=== PATIENT | male | born 1965 | race Caucasian/White ===

== ENCOUNTER → 2020-05-18 | Outpatient (CLI) | payer BC | END | disposition home or self-care (01) | LOC: LABWHC1 07:55 | PROVIDERS: ATTEND Anesthesiology Pain Medicine | DX: Z11.59 Encounter for screening for other viral diseases (principal) | CPT/HCPCS: U0003; C9803 ==

== ENCOUNTER 2020-09-21 15:54 | Inpatient (IN) | payer BC ==
[2020-09-21] MEDS ORDERED: NITROGLYCERIN OINT 1 INCH/GM PACKET TOPICAL STA (16:11)
[2020-09-21] MEDS ORDERED: ASPIRIN 81 MG PO STA (16:11)
--- NOTE | 2020-09-21 16:23 | ED ---
Chest Pain HPI - General Chief Complaint: Chest Pain Stated Complaint: Chest Pain Time Seen by Provider: 09/21/20 16:01 Source: patient, RN notes reviewed Mode of arrival: ambulatory Limitations: no limitations - History of Present Illness Initial Comments: 54-year-old male presents emergency Department chief complaint chest pain. Patient states symptoms started approximately one hour ago. Patient has been on and off symptoms over the last couple weeks. Patient has no prior cardiac disease. Patient is a daily smoker for over 30 years. Patient denies any history of hypertension hyperlipidemia diabetes. Patient has no abdominal complaints. Patient states became very diaphoretic when the pain started. Patient states the pain is 3 out of 10 currently denies any back pain. - Related Data Allergies Allergy/AdvReac Type Severity Reaction Status Date / Time No Known Allergies Allergy Verified 09/21/20 15:59 Review of Systems ROS Statement: Those systems with pertinent positive or pertinent negative responses have been documented in the HPI. ROS Other: All systems not noted in ROS Statement are negative. EKG Findings - EKG Comments: EKG Findings:: EKG performed at 16:04 normal sinus rhythm rate of 68 FL 150 QRS 96 QT status QTC 424/424 Past Medical History Additional Past Medical History / Comment(s): DDD History of Any Multi-Drug Resistant Organisms: None Reported Past Surgical History: Cholecystectomy, Orthopedic Surgery, Tonsillectomy Past Psychological History: No Psychological Hx Reported Smoking Status: Current every day smoker Past Alcohol Use History: None Reported Past Drug Use History: None Reported General Exam Limitations: no limitations General appearance: alert, in no apparent distress Head exam: Present: atraumatic, normocephalic, normal inspection Eye exam: Present: normal appearance, PERRL, EOMI. Absent: scleral icterus, conjunctival injection, periorbital swelling ENT exam: Present: normal exam, normal oropharynx, mucous membranes moist Neck exam: Present: normal inspection, full ROM. Absent: tenderness, meningismus, lymphadenopathy Respiratory exam: Present: normal lung sounds bilaterally. Absent: respiratory distress, wheezes, rales, rhonchi, stridor Cardiovascular Exam: Present: regular rate, normal rhythm, normal heart sounds. Absent: systolic murmur, diastolic murmur, rubs, gallop, clicks GI/Abdominal exam: Present: soft, normal bowel sounds. Absent: distended, tenderness, guarding, rebound, rigid Course Vital Signs 09/21/20 09/21/20 09/21/20 15:57 16:09 16:50 Temperature 98.1 F 97.9 F Pulse Rate 52 L 55 L Pulse Rate [ 63 Backroom Associate ] Respiratory 18 16 Rate Blood Pressure 130/77 113/79 O2 Sat by Pulse 97 98 Oximetry Chest Pain MDM - MDM 54-year-old male presented for chest pain., EKG, labs chest x-ray unremarkable. Patient symptoms started 1 hour prior to arrival. Patient be held for cardiac observation, repeat troponin, echocardiogram, cardiology evaluation possible stress and heart cath. Disposition Clinical Impression: Chest pain Disposition: ADMITTED IP TO THIS HOSP Referrals: Benjamin Rodriguez DO [Primary Care Provider] - 1-2 days
[2020-09-21 16:33] LABS: Basophils # (A) 0.1 k/uL (0-0.2); Basophils % (A) 1 %; Eosinophils # (A) 0.2 k/uL (0-0.7); Eosinophils % (A) 3 %; HGB 14.6 gm/dL (13.0-17.5); Lymphocytes # (A) 2.2 k/uL (1.0-4.8); Lymphocytes % (A) 26 %; MCH 30.4 pg (25.0-35.0); MCHC 33.2 g/dL (31.0-37.0); MCV 91.4 fL (80.0-100.0); Mean Platelet Volume 6.6; Monocytes # (A) 0.5 k/uL (0-1.0); Monocytes % (A) 6 %; Neutrophils # (A) 5.2 k/uL (1.3-7.7); Neutrophils % (A) 62 %; Platelet Count 268 k/uL (150-450); RBC 4.82 m/uL (4.30-5.90); RDW 12.5 % (11.5-15.5); WBC 8.4 k/uL (3.8-10.6)
[2020-09-21 16:41] LABS: ALT 18 U/L (4-49); AST 19 U/L (17-59); African American GFR (CKD) >90 (>60 ml/min/1.73 sqM); Albumin 4.3 g/dL (3.5-5.0); Alkaline Phosphatase 67 U/L (38-126); Anion Gap 5 mmol/L; Blood Urea Nitrogen 13 mg/dL (9-20); Calcium 9.5 mg/dL (8.4-10.2); Carbon Dioxide 26 mmol/L (22-30); Chloride 106 mmol/L (98-107); Glucose 112 mg/dL (74-99); Lipase 46 U/L (23-300); Magnesium 1.8 mg/dL (1.6-2.3); Non-African American GFR(CKD) >90 (>60 ml/min/1.73 sqM); Potassium 4.1 mmol/L (3.5-5.1); Sodium 137 mmol/L (137-145); Total Bilirubin 0.6 mg/dL (0.2-1.3); Total Protein 6.9 g/dL (6.3-8.2)
[2020-09-21 16:46] LABS: INR 0.9 (<1.2); Partial Thromboplastin Time 24.6 sec (22.0-30.0); Prothrombin Time 9.4 sec (9.0-12.0)
--- NOTE | 2020-09-21 17:06 | XR ---
EXAMINATION TYPE: XR chest 2V DATE OF EXAM: 09/21/2020 COMPARISON: 10/19/2018 HISTORY: Chest pain TECHNIQUE: FINDINGS: Heart and mediastinum are normal. Lungs are clear. Diaphragm is normal. Bony thorax is norm al. IMPRESSION: Normal chest. No change.
[2020-09-21] MEDS ORDERED: HEPARIN SODIUM,PORCINE 5,000 UNIT/ML 1 ML VIAL IV ONE (17:10)
[2020-09-21] MEDS ORDERED: NITROGLYCERIN SL TABS 0.4 MG TAB SUBLINGUAL PRN (17:10)
[2020-09-21] MEDS: HEPARIN SOD,PORK IN 0.45% NACL 25,000 UNIT in 0.45% NACL 1 250ML.BAG IV SCH (17:26)
[2020-09-21] MEDS: HYDROcodone/APAP 10-325MG 1 EACH TAB PO SCH (20:41)
[2020-09-21] MEDS ORDERED: ACETAMINOPHEN TAB 325 MG TAB PO PRN (22:03)
--- NOTE | 2020-09-21 22:51 | P.HPIM ---
History of Present Illness H&P Date: 09/21/20 Chief Complaint: chest pain History of presenting complaint: This is a pleasant [address] Rodriguez. Patient long-standing smoker. Patient today developed a burning sensation in the upper chest and patient broke or numbness site. It went to his jaw. Positive for good 30 minutes. Patient is feeling tired and rundown. It finally settled after receiving and Nitropaste in the ER. Currently chest pain-free. IV heparin. Patient second troponin coming back positive. The pain did radiate to the neck.. Burning sensation like in nature. Review of systems: GEN.: Tired EYES: None HEENT: None NECK: None RESPIRATORY: None CARDIOVASCULAR: As above GASTROINTESTINAL: None GENITOURINARY: None MUSCULOSKELETAL: [Chronic back pain LYMPHATICS: None HEMATOLOGICAL: None PSYCHIATRY: None NEUROLOGICAL: None Past medical history to include: DJD Social history: Does not drink alcohol. . Currently not working-previously doing part- time work. Smokes a pack a day for about 36 years Physical examination: VITAL SIGNS: 98.1, 52, 18, 130/77, 97% on room air GENERAL: BMI 33.5, sitting up at age of the bed, not in distress. EYES: Pupils equal. Conjunctiva normal. HEENT: External appearance of nose and ears normal, oral cavity grossly normal. NECK: JVD not raised; masses not palpable. HEART: First and second heart sounds are normal; no edema. LUNGS: Respiratory rate normal; decreased breath sounds. ABDOMEN: Soft, nontender, liver spleen not palpable, no masses palpable. PSYCH: Alert and oriented x3; mood and affect normal. NEUROLOGICAL: Cranial nerves grossly intact; no facial asymmetry, power and sensation grossly intact. LYMPHATICS: No lymph nodes palpable in the axilla and neck INVESTIGATIONS, reviewed in the clinical context: White count 8.4 hemoglobin 14.6 platelets 268 potassium 4.1 creatinine 0.95 Troponin I 0.012, 0.072 EKG tracing personally reviewed by me-normal sinus rhythm, PVC Chest x-ray film personally reviewed by me-no infiltrates. Borderline cardiomegaly Assessment: -Acute non-ST elevation myocardial infarction with classical presentation and positive troponin. No EKG changes. Suspect left main or LAD disease. -Obesity BMI 33.5 -IV heparin monitoring -Chronic nicotine dependence patient cigarette smoker -DJD of the cervical spine, but chronic pain Plan: Patient is on aspirin. Home medications resumed. IV heparin. Start the patient on Lipitor. Patient's heart rate is running in the 50s we'll hold off any beta lori. Cardiology consulted. Patient be made nothing by mouth after midnight for a possible cardiac catheterization. Smoke cessation counseling: This was done with the patient. Nicotine patch is being given. More than 3 minutes was spent for this Past Medical History Additional Past Medical History / Comment(s): DDD History of Any Multi-Drug Resistant Organisms: None Reported Past Surgical History: Cholecystectomy, Orthopedic Surgery, Tonsillectomy Past Psychological History: No Psychological Hx Reported Smoking Status: Current every day smoker Past Alcohol Use History: None Reported Past Drug Use History: None Reported Medications and Allergies Home Medications Medication Instructions Recorded Confirmed Type HYDROcodone/APAP 10-325MG [[place] 1 tab PO HS 09/21/20 09/21/20 History 10-325] HYDROcodone/APAP 10-325MG [[place] 2 tab PO BID@0800,1300 09/21/20 09/21/20 History 10-325] fentaNYL 12MCG/HR PATCH [[place] 1 patch TRANSDERM Q72H 09/21/20 09/21/20 History 12MCG/HR] Allergies Allergy/AdvReac Type Severity Reaction Status Date / Time No Known Allergies Allergy Verified 09/21/20 17:29 Physical Exam Vitals: Vital Signs Temp Pulse Pulse Resp BP BP Pulse Ox 09/21/20 17:58 97.5 F L 68 16 129/80 95 09/21/20 17:33 97.9 F 58 L 14 114/83 98 09/21/20 16:50 97.9 F 55 L 16 113/79 98 09/21/20 16:09 63 09/21/20 15:57 98.1 F 52 L 18 130/77 97 Intake and Output 09/21/20 09/21/20 09/21/20 06:59 14:59 22:59 Intake Total 480 Balance 480 Intake: Oral 480 Other: Weight 99.79 kg Results CBC & Chem 7: 09/21/20 16:14 09/21/20 16:14 Labs: Abnormal Lab Results - Last 24 Hours (Table) 09/21/20 09/21/20 Range/Units 16:14 19:09 Glucose 112 H (74-99) mg/dL Troponin I 0.072 H* (0.000-0.034) ng/mL Thrombosis Risk Factor Assmnt - Choose All That Apply Any of the Below Risk Factors Present?: Yes Each Factor Represents 1 point: Age 41-60 years Thrombosis Risk Factor Assessment Total Risk Factor Score: 1 Thrombosis Risk Factor Assessment Level: Low Risk
[2020-09-21] MEDS ORDERED: ATORVASTATIN 40 MG TAB PO SCH (23:00)
[2020-09-21] MEDS ORDERED: HEPARIN SODIUM,PORCINE 5,000 UNIT/ML 1 ML VIAL IV PRN (23:58)
[2020-09-22 06:17] LABS: Mean Platelet Volume 6.6; Platelet Count 245 k/uL (150-450)
[2020-09-22 06:35] LABS: Cholesterol 192 mg/dL (<200); HDL Cholesterol 44 mg/dL (40-60); LDL Cholesterol,Calculated 104 mg/dL (0-99); Triglycerides 218 mg/dL (<150)
--- NOTE | 2020-09-22 08:03 | P.CRDCN ---
History of Present Illness Consult date: 09/22/20 Reason for Consult (text): This is a pleasant 54-year-old gentleman with no prior documented history of hypertension, no diabetes, no hyperlipidemia, he does smoke one pack of cigarettes per day, denies any family history of premature coronary artery disease. 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 Patient presents to the hospital with symptoms of midsternal chest pressure and burning. He states he became extremely diaphoretic. According to the patient approximately one week ago he did notice symptoms similar to this but much less severe, and they seemed to dissipate when he rested. Blood pressure this morning 126/78, heart rate in the 70s, 96% on room air. White blood cell count 8.4, hemoglobin 14.6, platelet count 268. Sodium 137, potassium 4.1, BUN 13, creatinine 0.9, magnesium 1.8. Troponins 0.012, 0.072, 0.248. Cholesterol 192, triglycerides 218, LDL 104, HDL 44. EKG on presentation here showed a normal sinus rhythm with biphasic T waves noted in the inferior leads, occasional PVC. Subsequent EKG performed this morning showed normal sinus rhythm with ST-T wave changes in the inferior leads. Patient was initiated on IV heparin, at the time of my examination this morning he is currently chest pain-free. Past Medical History Additional Past Medical History / Comment(s): DDD History of Any Multi-Drug Resistant Organisms: None Reported Past Surgical History: Cholecystectomy, Orthopedic Surgery, Tonsillectomy Past Psychological History: No Psychological Hx Reported Smoking Status: Current every day smoker Past Alcohol Use History: None Reported Past Drug Use History: None Reported Medications and Allergies Home Medications Medication Instructions Recorded Confirmed Type HYDROcodone/APAP 10-325MG [[place] 1 tab PO HS 09/21/20 09/21/20 History 10-325] HYDROcodone/APAP 10-325MG [[place] 2 tab PO BID@0800,1300 09/21/20 09/21/20 History 10-325] fentaNYL 12MCG/HR PATCH [[place] 1 patch TRANSDERM Q72H 09/21/20 09/21/20 History 12MCG/HR] Allergies Allergy/AdvReac Type Severity Reaction Status Date / Time No Known Allergies Allergy Verified 09/21/20 17:29 Physical Exam Vitals: Vital Signs Temp Pulse Pulse Resp BP BP Pulse Ox 09/22/20 04:00 97.9 F 74 18 126/79 96 09/22/20 00:15 67 18 128/83 97 09/21/20 20:00 97.9 F 63 17 128/79 97 09/21/20 17:58 97.5 F L 68 16 129/80 95 09/21/20 17:33 97.9 F 58 L 14 114/83 98 09/21/20 16:50 97.9 F 55 L 16 113/79 98 09/21/20 16:09 63 09/21/20 15:57 98.1 F 52 L 18 130/77 97 Intake and Output 09/21/20 09/22/20 09/22/20 22:59 06:59 14:59 Intake Total 480 149.579 Balance 480 149.579 Intake: Intake, IV Titration 149.579 Amount Heparin Sod,Pork in 0.45% 149.579 NaCl 25,000 unit In 0.45 % NaCl 1 250ml.bag @ 10. 021 UNITS/KG/HR 10 mls/hr IV .Q24H [facility] Rx#: [id number] Oral 480 Other: Voiding Method Toilet Toilet # Voids 2 Weight 99.79 kg 93 kg PHYSICAL EXAMINATION: GENERAL: 54-year-old gentleman in no acute distress at the time of my examination HEENT: Head is atraumatic, normocephalic. Pupils equal, round. Sclera an icteric. Conjunctiva are clear. Mucous membranes of the mouth are moist. Neck is supple. There is no elevated jugular venous pressure. No carotid bruit is heard. HEART EXAMINATION: Heart S1, S2 normal. No murmur or gallop heard. CHEST EXAMINATION: Lungs are clear to auscultation and precussion. No chest wall tenderness is noted on palpation or with deep breathing. ABDOMEN: Soft, nontender. Bowel sounds are heard. No organomegaly noted. EXTREMITIES: 2+ peripheral pulses with no evidence of peripheral edema and no calf tenderness noted. NEUROLOGIC patient is awake, alert and oriented 3 . Results 09/22/20 05:50 09/21/20 16:14 Cardiac Enzymes 09/21/20 09/21/20 09/21/20 Range/Units 16:14 16:14 19:09 AST 19 (17-59) U/L Troponin I <0.012 0.072 H* (0.000-0.034) ng/mL 09/21/20 Range/Units 22:49 AST (17-59) U/L Troponin I 0.248 H* (0.000-0.034) ng/mL Coagulation 09/21/20 09/21/20 09/22/20 Range/Units 16:14 22:49 05:50 PT 9.4 (9.0-12.0) sec APTT 24.6 35.4 H 42.7 H (22.0-30.0) sec Lipids 09/22/20 Range/Units 05:50 Triglycerides 218 H (<150) mg/dL Cholesterol 192 (<200) mg/dL HDL Cholesterol 44 (40-60) mg/dL CBC 09/21/20 09/22/20 Range/Units 16:14 05:50 WBC 8.4 (3.8-10.6) k/uL RBC 4.82 (4.30-5.90) m/uL Hgb 14.6 (13.0-17.5) gm/dL Hct 44.0 (39.0-53.0) % Plt Count 268 245 (150-450) k/uL Comprehensive Metabolic Panel 09/21/20 Range/Units 16:14 Sodium 137 (137-145) mmol/L Potassium 4.1 (3.5-5.1) mmol/L Chloride 106 (98-107) mmol/L Carbon Dioxide 26 (22-30) mmol/L BUN 13 (9-20) mg/dL Creatinine 0.95 (0.66-1.25) mg/dL Glucose 112 H (74-99) mg/dL Calcium 9.5 (8.4-10.2) mg/dL AST 19 (17-59) U/L ALT 18 (4-49) U/L Alkaline Phosphatase 67 (38-126) U/L Total Protein 6.9 (6.3-8.2) g/dL Albumin 4.3 (3.5-5.0) g/dL Current Medications Generic Name Dose Route Start Last Admin Trade Name Freq PRN Reason Stop Dose Admin Acetaminophen 650 mg 09/21/20 22:03 09/21/20 22:12 Acetaminophen Tab 325 Mg Tab PO 650 mg Q6HR PRN Administration Fever and/ or Pain Hydrocodone Bitart/Acetaminophen 1 each 09/21/20 21:00 09/21/20 20:41 Hydrocodone/Apap 10-325mg 1 Each Tab PO 1 each HS ANDREAS Administration Hydrocodone Bitart/Acetaminophen 2 each 09/22/20 08:00 Hydrocodone/Apap 10-325mg 1 Each Tab PO BID@0800,1300 [facility] Aspirin 325 mg 09/22/20 09:00 Aspirin 325 Mg Tab PO DAILY [facility] Atorvastatin Calcium 40 mg 09/21/20 23:00 09/21/20 23:15 Atorvastatin 40 Mg Tab PO 40 mg HS ANDREAS Administration Fentanyl 1 patch 09/23/20 09:00 Fentanyl 12mcg/Hr Patch TRANSDERM Q72H [facility] Heparin Sodium (Porcine) 0 unit 09/21/20 23:58 09/22/20 00:11 Heparin Sodium,Porcine 5,000 Unit/Ml 1 Ml Vial IV 2,500 unit PER PROTOCOL PRN Administration Low PTT Protocol Heparin Sodium/Sodium Chloride 250 mls @ 10 mls/hr 09/21/20 17:15 09/22/20 06:30 25,000 unit/ Sodium Chloride IV 15.021 units/kg/hr .Q24H ANDREAS 14.989 mls/hr Titration Protocol 10.021 UNITS/KG/HR Nitroglycerin 0.4 mg 09/21/20 17:10 Nitroglycerin Sl Tabs 0.4 Mg Tab SUBLINGUAL Q5M PRN Chest Pain Intake and Output 09/21/20 09/22/20 09/22/20 22:59 06:59 14:59 Intake Total 480 149.579 Balance 480 149.579 Intake: Intake, IV Titration 149.579 Amount Heparin Sod,Pork in 0.45% 149.579 NaCl 25,000 unit In 0.45 % NaCl 1 250ml.bag @ 10. 021 UNITS/KG/HR 10 mls/hr IV .Q24H [facility] Rx#: [id number] Oral 480 Other: Voiding Method Toilet Toilet # Voids 2 Weight 99.79 kg 93 kg 09/22/20 05:50 09/21/20 16:14 EKG Interpretations (text) EKG shows normal sinus rhythm with ST-T wave changes noted in the inferior leads Assessment and Plan Plan: Assessment and plan #1 non-ST elevation myocardial infarction #2 nicotine dependence #3 spinal stenosis Plan From cardiology's perspective, patient has been advised to undergo cardiac catheterization, the risks and the benefits were explained to the patient in detail and he is willing to proceed. We will obtain an echocardiogram with Doppler study, continue IV heparin, aspirin, and Lipitor. Further recommendations will be based on the findings of this test and the patient's overall clinical course. DNP note has been reviewed, I agree with a documented findings and plan of care. Patient was seen and examined.
[2020-09-22] MEDS ORDERED: ALPRAZolam 0.25 MG TAB PO PRN (08:04)
[2020-09-22] MEDS ORDERED: ATORVASTATIN 40 MG TAB PO STA (08:04)
[2020-09-22] MEDS ORDERED: SODIUM CHLORIDE 0.9% 1,000 ML in EMPTY BAG 1 BAG IV ONE (08:04)
[2020-09-22] MEDS ORDERED: ALPRAZolam 0.5 MG TAB PO PRN (08:04)
[2020-09-22] MEDS ORDERED: NITROGLYCERIN SL TABS 0.4 MG TAB SUBLINGUAL PRN ×2 (08:04→11:21)
[2020-09-22] MEDS ORDERED: ASPIRIN 325 MG TAB PO STA (08:04)
[2020-09-22] MEDS: HYDROcodone/APAP 10-325MG 1 EACH TAB PO SCH ×3 (08:27→20:04)
[2020-09-22] MEDS ORDERED: ASPIRIN 325 MG TAB PO SCH (09:00)
[2020-09-22] MEDS ORDERED: HEPARIN SODIUM 1,000 UN/ML (10ML VL) ONE ×2 (09:22→10:28)
[2020-09-22] MEDS ORDERED: VERAPAMIL 2.5 MG/ML 2 ML AMP ONE (09:22)
[2020-09-22] MEDS ORDERED: LIDOCAINE 1% INJ 10MG/ML (20 ML MDV) ONE (09:22)
[2020-09-22] MEDS ORDERED: IV FLUID CONTINUATION 950 ML IV ONE (09:30)
[2020-09-22] MEDS: MIDAZOLAM 2 MG/2 ML VIAL IVP ONE ×2 (09:35→10:05)
[2020-09-22] MEDS ORDERED: fentaNYL (PF) 50 MCG/ML 2 ML AMP ONE (09:45)
[2020-09-22] MEDS: fentaNYL (PF) 50 MCG/ML 2 ML AMP IVP ONE ×4 (09:49→11:07)
[2020-09-22] MEDS ORDERED: MIDAZOLAM 2 MG/2 ML VIAL IVP ONE (09:51)
[2020-09-22] MEDS ORDERED: LIDOCAINE 1% INJ 10MG/ML (20 ML MDV) SQ ONE (09:51)
[2020-09-22] MEDS ORDERED: VERAPAMIL SYRINGE (5 MG/10 ML) INTRAARTER ONE (09:52)
[2020-09-22] MEDS ORDERED: HEPARIN SODIUM 1,000 UN/ML (10ML VL) IV ONE (09:53)
[2020-09-22] MEDS ORDERED: niCARdipine 25 MG/10 ML VIAL ONE (10:17)
[2020-09-22] MEDS ORDERED: NITROGLYCERIN 1000MCG/10ML SYRINGE INTRACORON ONE (10:21)
[2020-09-22] MEDS ORDERED: HYDROmorphone 0.5 MG/0.5 ML SYRINGE IVP ONE (10:22)
[2020-09-22] MEDS ORDERED: IOPAMIDOL-370 125ML BTL INJ ONE (10:29)
[2020-09-22] MEDS ORDERED: PRASUGREL 10 MG TAB ONE (10:47)
[2020-09-22] MEDS ORDERED: PRASUGREL 10 MG TAB PO ONE (10:49)
[2020-09-22] MEDS ORDERED: IOPAMIDOL-370 100ML BTL INJ ONE (11:09)
[2020-09-22] MEDS ORDERED: RX INFO: IV CONTRAST WAS GIVEN 1 EACH MISC MISCELLANE PRN (11:21)
[2020-09-22] MEDS ORDERED: MAG HYDROX/AL HYDROX/SIMETH 30 ML CUP PO PRN (11:21)
[2020-09-22] MEDS ORDERED: ATROPINE SULFATE 0.1 MG/ML 10ML SYRINGE IV PRN (11:21)
[2020-09-22] MEDS ORDERED: ZOLPIDEM 5 MG TAB PO PRN (11:21)
[2020-09-22] MEDS ORDERED: SODIUM CHLORIDE 0.9% 1,000 ML IV SCH (11:30)
--- NOTE | 2020-09-22 12:10 | LTR ---
September 22, 2020 RE: Dion Cardenas Dear Dr. Rodriguez: Mr. Dion Cardenas presented to [facility] with chest discomfort and ruled in for acute coronary syndrome. He underwent a heart catheterization and that revealed critical disease involving the RCA and occluded LAD. I did perform successful stenting of both the RCA and LAD with good angiographic results and without any complication. I want to thank you for allowing us to participate in his care and please do not hesitate to call if you have any question or concerns. Sincerely, John Polanco MD MMÓSCARL / ANDRIAN: [id number] /
--- NOTE | 2020-09-22 12:16 | CC ---
CARDIAC CATHETERIZATION REPORT DATE OF SERVICE: September 22, 2020 PERFORMING PHYSICIAN: John Polanco MD. PROCEDURE PERFORMED: 1. Selective right and left coronary angiogram. 2. Left heart catheterization. 3. Successful crossing chronic total occlusion of the left anterior descending artery along with successful stenting of the LAD using 2.0 x 22 mm [place] drug-eluting stent which was post-dilated using 2.5 mm balloon with an excellent angiographic result and reduction of stenosis from 100% to 0%. 4. Successful stenting of the proximal to mid right coronary artery using 3.5 x 18 and 4.0 12 mm Xience drug-eluting stent with an excellent angiographic results and reduction of stenosis of from 95% to 0%. INDICATION: This is a 54-year-old gentleman who has hypertension and dyslipidemia who presented to the hospital with chest discomfort and ruled in for acute [id number] myocardial infarction. The decision was made towards percutaneous coronary intervention. APPROACH: Right radial artery. COMPLICATION: None. LEVEL OF SEDATION: Moderate with sedation length of 80 minutes. PROCEDURE DESCRIPTION: After obtaining an informed consent, the patient was brought to the cardiac clinical lab scientist. The right radial artery was cannulated using micropuncture technique, the micropuncture wire passed easily. Then I placed a 6-Divehi sheath in the right radial artery. After that I gave the patient 2 mg of verapamil IA and I gave the patient a total of 10,000 units of heparin IV. Selective right and left coronary angiogram performed using JR4 and JL3.5 diagnostic catheters. Left heart catheterization was performed using the JR4 catheter which crossed the aortic valve, then I did pullback across the valve. After that I did intervene on the LAD and RCA. Please see a separate paragraph for that. SELECTIVE CORONARY ANGIOGRAM: 1. The right coronary artery is a large caliber vessel. It is a dominant vessel. The RCA in the proximal to midportion has a thrombotic lesion appeared to be in the range of 80% to 90%. The mid RCA has mild disease only and the RCA distally appeared to have mild disease only and bifurcates into PDA and PLV branches both appeared to have mild disease only. 2. The left main is angiographically normal. It bifurcates into LCX, ramus intermedius, and left anterior descending artery. 3. The left circumflex is a large caliber vessel. It is a nondominant vessel. The left circumflex is angiographically normal. In the midportion gives rise into first and second obtuse marginal branches, both appeared to be angiographically normal. 4. The ramus intermedius is a large caliber vessel with intermediate lesion appeared to be in the range of 50%. 5. The LAD in the proximal portion appeared to be angiographically normal. In the midportion is a chronically occluded on short segment. The LAD distally appeared to have mild disease only. HEMODYNAMICS: The LVEDP was 10 to 12 mmHg without significant gradient across the aortic valve. PCI OF THE LAD AND RCA: Anticoagulation was achieved with heparin with continuous ACT monitoring throughout the procedure. Also during the intervention, the patient was loaded with 60 of Effient. I did engage the left main using JL3.5 guiding catheter. I initially attempted to cross the chronic total occlusion of the LAD using a Whisper wire, but I ended in subintimal space. With adjunctive use of [place] Cross catheter at 45 angle, I was able to direct the wire in the right spot and cross the lesion and advance the wire all the way to the apical LAD. After that, I did balloon angioplasty of the left anterior descending artery initially using 2.0 x 12 mm balloon. I attempted advancing 2.0 x 22 mm [place] drug-eluting stent but the stent will not cross that lesion in the very mid left anterior descending artery. I decided to go ahead and do balloon angioplasty again using this time 2.5 x 12 mm balloon. In spite of that, the stent will not cross the lesion in the mid LAD. I wired the LAD using a doroteo wire and that was a run-through wire. Attempting advancing the stent over the whisper and run-through was unsuccessful. I decided at that point to dilate using 2.5 x 12 mm noncompliant balloon. After that, I was able to advance the stent all the way to the mid LAD where the stent was positioned under fluoroscopy guidance and deployed under 18 atmospheres for 20 seconds. The stent was post-dilated using 2.5 mm NC balloon. The following angiogram showed excellent angiographic results and the procedure was completed without any complication. For the lesion in the right coronary artery: I engaged the right coronary artery using JR4 guide. I did predilate the artery using 3.5 x 12 mm balloon. After that, I deployed 3.5 x 18 mm Xience drug-eluting stent. The stent was positioned under fluoroscopy guidance and deployed under 14 atmospheres for 20 seconds. The following angiogram showed just proximal to the stent there is an area which seems to be suspicious and because of that I decided to cover that area using a 4 mm x 12 mm stent. I deployed that stent with about 2 mm overlap between the new stent and the previous stent. The final angiogram showed excellent results and the procedure was completed without any complication. CONCLUSION: 1. Acute [id number]-[id number] myocardial infarction in this 54-year-old gentleman. 2. 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 I did perform successful stenting of the LAD. 3. Critical disease involving the proximal to mid RCA. I did perform successful stenting of the proximal to mid RCA. POSTPROCEDURE MANAGEMENT: 1. Dual anti-platelet therapy. 2. Risk factor modifications. 3. Follow up with the patient. MMBUCK / ANDRIAN: [id number] /
--- NOTE | 2020-09-22 12:24 | ECHOF ---
Referral Reason:chest pain MEASUREMENTS -------- HEIGHT: 172.7 cm WEIGHT: 93.0 kg BP: IVSd: 1.2 cm (0.6 - 1.1) LVIDd: 5.0 cm (3.9 - 5.3) LVPWd: 1.6 cm (0.6 - 1.1) IVSs: 1.6 cm LVIDs: 3.8 cm LVPWs: 2.0 cm Ao Diam: 3.4 cm (2.0 - 3.7) AV Cusp: 2.0 cm (1.5 - 2.6) LA Diam: 2.7 cm (2.7 - 3.8) MV EXCURSION: 14.447 mm (> 18.000) MV EF SLOPE: 98 mm/s (70 - 150) EPSS: 1.5 cm MV E Boom: 0.56 m/s MV DecT: 214 ms MV A Boom: 0.56 m/s MV E/A Ratio: 0.99 RAP: 5.00 mmHg RVSP: 15.73 mmHg FINDINGS -------- This was a technically difficult study with suboptimal views. The left ventricular size is normal. There is moderate concentric left ventricular hypertrophy. O verall left ventricular systolic function is mildly impaired with, an EF between 45 - 50 %. Basal i nferolateral hypokinesis. The right ventricle is normal in size. The left atrial size is normal. The right atrial size is normal. Lumason used The aortic valve is trileaflet and appears structurally normal. The mitral valve is normal. There is trace mitral regurgitation. The tricuspid valve appears structurally normal. Trace tricuspid regurgitation present. Right willie tricular systolic pressure is normal at < 35 mmHg. There is no pulmonic regurgitation present. The aortic root size is normal. There is no pericardial effusion. CONCLUSIONS -------- 1. The left ventricular size is normal. 2. There is moderate concentric left ventricular hypertrophy. 3. Overall left ventricular systolic function is mildly impaired with, an EF between 45 - 50 %. 4. Basal inferolateral hypokinesis. 5. There is trace mitral regurgitation. 6. Trace tricuspid regurgitation present. 7. There is no pericardial effusion. CHILD AND ADOLESCENT PSYCHOLOGIST: Amaya Malik RD
[2020-09-22 14:13] VITALS: BMI 31.1
[2020-09-22] MEDS: HEPARIN SOD,PORK IN 0.45% NACL 25,000 UNIT in 0.45% NACL 1 250ML.BAG IV SCH (14:36)
--- NOTE | 2020-09-22 16:49 | P.PN ---
Progress Note - Text Progress Note Date: 09/22/20 Chief Complaint: chest pain History of presenting complaint: This is a pleasant [address] Rodriguez. Patient long-standing smoker. Patient today developed a burning sensation in the upper chest and patient broke or numbness site. It went to his jaw. Positive for good 30 minutes. Patient is feeling tired and rundown. It finally settled after receiving and Nitropaste in the ER. Currently chest pain-free. IV heparin. Patient second troponin coming back positive. The pain did radiate to the neck.. Burning sensation like in nature. Admitted with acute non-ST elevation myocardial infarction. Started IV heparin. Today-underwent cardiac catheterization. Had a stent to the LAD and RCA. Postprocedure laying in bed. No chest pain or shortness of breath. Review of systems: Was done for constitutional, cardiovascular, GI, pulmonary. relevant finding as above Active Medications Acetaminophen (Acetaminophen Tab 325 Mg Tab) 650 mg PO Q6HR PRN PRN Reason: Fever and/ or Pain Last Admin: 09/21/20 22:12 Dose: 650 mg Documented by: Hydrocodone Bitart/Acetaminophen (Hydrocodone/Apap 10-325mg 1 Each Tab) 1 each PO HS [facility] Last Admin: 09/21/20 20:41 Dose: 1 each Documented by: Hydrocodone Bitart/Acetaminophen (Hydrocodone/Apap 10-325mg 1 Each Tab) 2 each PO BID@0800,1300 [facility] Last Admin: 09/22/20 13:24 Dose: 2 each Documented by: Al Hydroxide/Mg Hydroxide (Mag Hydrox/Al Hydrox/Simeth 30 Ml Cup) 30 ml PO Q4HR PRN PRN Reason: Heartburn Alprazolam (Alprazolam 0.25 Mg Tab) 0.25 mg PO Q6HR PRN PRN Reason: Mild Anxiety Alprazolam (Alprazolam 0.5 Mg Tab) 0.5 mg PO Q6HR PRN PRN Reason: Moderate Anxiety Aspirin (Aspirin 325 Mg Tab) 325 mg PO DAILY [facility] Last Admin: 09/22/20 09:13 Dose: Not Given Documented by: Atorvastatin Calcium (Atorvastatin 80 Mg Tab) 80 mg PO HS [facility] Atropine Sulfate (Atropine Sulfate 0.1 Mg/Ml 10ml Syringe) 0.5 mg IV ONCE PRN PRN Reason: Symptomatic Bradycardia Fentanyl (Fentanyl 12mcg/Hr Patch) 1 patch TRANSDERM Q72H [facility] Heparin Sodium (Porcine) (Heparin Sodium,Porcine 5,000 Unit/Ml 1 Ml Vial) 0 unit IV PER PROTOCOL PRN; Protocol PRN Reason: Low PTT Last Admin: 09/22/20 00:11 Dose: 2,500 unit Documented by: Heparin Sodium/Sodium Chloride (25,000 unit/ Sodium Chloride) 250 mls @ 10 mls/hr IV .Q24H ANDREAS; Protocol Last Admin: 09/22/20 14:36 Dose: Not Given Documented by: Sodium Chloride 1,000 ml/ IV (Solution) 1,000 mls @ 93 mls/hr IV .[id number] Stop: 09/22/20 18:49 Last Admin: 09/22/20 09:12 Dose: Not Given Documented by: Sodium Chloride (Saline 0.9%) 1,000 mls @ 75 mls/hr IV .[id number] [facility] Stop: 09/22/20 17:31 Last Admin: 09/22/20 13:10 Dose: Not Given Documented by: Metoprolol Tartrate (Metoprolol Tartrate 25 Mg Tab) 25 mg PO BID [facility] Miscellaneous Information (Rx Info: Iv Contrast Was Given 1 Each Misc) 1 each MISCELLANE DAILY PRN PRN Reason: Per Protocol Stop: 09/24/20 11:21 Nitroglycerin (Nitroglycerin Sl Tabs 0.4 Mg Tab) 0.4 mg SUBLINGUAL Q5M PRN PRN Reason: Chest Pain Prasugrel (Prasugrel 10 Mg Tab) 10 mg PO DAILY [facility] Zolpidem Tartrate (Zolpidem 5 Mg Tab) 5 mg PO HS PRN PRN Reason: Insomnia Physical examination: VITAL SIGNS: 98.1, 82, 18, 119/69, 96% room air GENERAL: Laying in bed, comfortable awake EYES: Pupils equal. Conjunctiva normal. NECK: JVD not raised; masses not palpable. HEART: First and second heart sounds are normal; no edema. LUNGS: Respiratory rate normal; decreased breath sounds. ABDOMEN: Soft, nontender, liver spleen not palpable, no masses palpable. PSYCH: Alert and oriented x3; mood and affect normal. INVESTIGATIONS, reviewed in the clinical context: White count 8.4 hemoglobin 14.6 platelets 268 potassium 4.1 creatinine 0.95 2-D echocardiogram-moderate concentric LVH, EF 45-50% basal inferolateral hypokinesis Troponin I 0.012, 0.072, 0.248 LDL 104 EKG tracing personally reviewed by me-normal sinus rhythm, PVC Chest x-ray film personally reviewed by me-no infiltrates. Borderline cardiomegaly Assessment: -Acute non-ST elevation myocardial infarction POA -Coronary artery disease-with stent to the LAD, RCA -Hyperlipidemia -Obesity BMI 33.5 -IV heparin monitoring -Chronic nicotine dependence patient cigarette smoker -DJD of the cervical spine, but chronic pain Plan: Patient currently on aspirin, Lipitor, Effient.A small dose of LUPILLO inhibitor. Discussed with patient.
[2020-09-22] MEDS: METOPROLOL TARTRATE 25 MG TAB PO SCH (20:04)
[2020-09-23 08:30] LABS: Mean Platelet Volume 6.6; Platelet Count 278 k/uL (150-450)
[2020-09-23 08:33] VITALS: BP 112/69; PULSE 75; RESP 14; TEMP 98.3
[2020-09-23] MEDS: HYDROcodone/APAP 10-325MG 1 EACH TAB PO SCH ×2 (08:35→12:41)
[2020-09-23] MEDS: METOPROLOL TARTRATE 25 MG TAB PO SCH (08:36)
[2020-09-23 08:57] LABS: African American GFR (CKD) >90 (>60 ml/min/1.73 sqM); Non-African American GFR(CKD) 82 (>60 ml/min/1.73 sqM)
[2020-09-23] MEDS ORDERED: ASPIRIN 81 MG PO SCH (09:00)
[2020-09-23] MEDS ORDERED: PRASUGREL 10 MG TAB PO SCH (09:00)
--- NOTE | 2020-09-23 09:45 | P.PN ---
Subjective Progress Note Date: 09/23/20 This is a pleasant 54-year-old gentleman with no prior documented history of hypertension, no diabetes, no hyperlipidemia, he does smoke one pack of cigarettes per day, denies any family history of premature coronary artery disease. 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 Patient presents to the hospital with symptoms of midsternal chest pressure and burning. He states he became extremely diaphoretic. According to the patient approximately one week ago he did notice symptoms similar to this but much less severe, and they seemed to dissipate when he rested. Blood pressure this morning 126/78, heart rate in the 70s, 96% on room air. White blood cell count 8.4, hemoglobin 14.6, platelet count 268. Sodium 137, potassium 4.1, BUN 13, creatinine 0.9, magnesium 1.8. Troponins 0.012, 0.072, 0.248. Cholesterol 192, triglycerides 218, LDL 104, HDL 44. EKG on presentation here showed a normal sinus rhythm with biphasic T waves noted in the inferior leads, occasional PVC. Subsequent EKG performed this morning showed normal sinus rhythm with ST-T wave changes in the inferior leads. Patient was initiated on IV heparin, at the time of my examination this morning he is currently chest pain-free. 09/23/2020 Patient was seen and examined this morning, underwent angioplasty and stenting of the right coronary artery and LAD yesterday. Blood pressure this morning 112/70 with a heart rate in the 70s, 98% on room air. Patient was seen and examined this morning, denies any chest pain or difficulty in breathing, he's been up ambulating in his room without any difficulty. Echocardiogram with Doppler study was performed which revealed an ejection fraction of 45-50%. Laboratory data from this morning is yet pending. Objective - Vital Signs Vital signs: Vital Signs Temp 98.3 F 09/23/20 08:31 Pulse 75 09/23/20 08:31 Resp 14 09/23/20 08:31 BP 112/69 09/23/20 08:31 Pulse Ox 98 09/23/20 08:31 Intake & Output 09/22/20 09/23/20 09/23/20 18:59 06:59 18:59 Intake Total 730 450 240 Balance 730 450 240 Weight 93 kg Intake: IV 500 Oral 230 450 240 Other: Voiding Method Toilet # Voids 2 1 1 - Exam PHYSICAL EXAMINATION: GENERAL: 54-year-old gentleman in no acute distress at the time of my examination HEENT: Head is atraumatic, normocephalic. Pupils equal, round. Sclera anicteric. Conjunctiva are clear. Mucous membranes of the mouth are moist. Neck is supple. There is no elevated jugular venous pressure. No carotid bruit is heard. HEART EXAMINATION: Heart S1, S2 normal. No murmur or gallop heard. CHEST EXAMINATION: Lungs are clear to auscultation and precussion. No chest wall tenderness is noted on palpation or with deep breathing. ABDOMEN: Soft, nontender. Bowel sounds are heard. No organomegaly noted. EXTREMITIES: 2+ peripheral pulses with no evidence of peripheral edema and no calf tenderness noted. Right radial site clean and dry, good distal pulse. NEUROLOGIC patient is awake, alert and oriented 3 . . - Labs CBC & Chem 7: 09/23/20 07:32 09/23/20 07:32 Assessment and Plan Plan: Assessment and plan #1 non-ST elevation myocardial infarction, status post angioplasty and stenting of the RCA and LAD. Echocardiogram revealed an ejection fraction of 45-50%. #2 nicotine dependence #3 spinal stenosis #4 hyperlipidemia Plan From cardiology's perspective patient may be able to be discharged home today. We will make a follow-up appointment with Dr. Jefferson in the office post [facility]. Discharge medications include aspirin 81 mg daily, Lipitor 80 mg daily, lisinopril 2-1/2 mg daily, metoprolol 25 mg one tablet by mouth twice a day, Effient 10 mg daily and sublingual nitroglycerin as needed for chest pain. Patient has also been encouraged regarding the importance of nicotine cessation. DNP note has been reviewed, I agree with a documented findings and plan of care. Patient was seen and examined.
[2020-09-23 10:10] LABS: Basophils # (A) 0.1 k/uL (0-0.2); Basophils % (A) 1 %; Eosinophils # (A) 0.2 k/uL (0-0.7); Eosinophils % (A) 2 %; HCT 47.7 % (39.0-53.0); HGB 15.7 gm/dL (13.0-17.5); Lymphocytes # (A) 2.1 k/uL (1.0-4.8); Lymphocytes % (A) 21 %; MCH 30.6 pg (25.0-35.0); MCHC 32.9 g/dL (31.0-37.0); MCV 92.9 fL (80.0-100.0); Monocytes # (A) 0.7 k/uL (0-1.0); Monocytes % (A) 7 %; Neutrophils # (A) 6.6 k/uL (1.3-7.7); Neutrophils % (A) 67 %; RBC 5.13 m/uL (4.30-5.90); RDW 12.2 % (11.5-15.5); WBC 9.9 k/uL (3.8-10.6)
[2020-09-23 10:24] LABS: Anion Gap 7 mmol/L; Blood Urea Nitrogen 16 mg/dL (9-20); Carbon Dioxide 27 mmol/L (22-30); Chloride 104 mmol/L (98-107); Glucose 113 mg/dL (74-99); Potassium 4.6 mmol/L (3.5-5.1); Sodium 138 mmol/L (137-145)
--- NOTE | 2020-09-23 20:01 | P.DS ---
Providers Date of admission: 09/23/20 11:08 Expected date of discharge: 09/23/20 Attending physician: Sherwin José Consults: 09/21/20 17:10 Consult Physician Urgent Consulting Provider: John Polanco Consult Reason/Comments: chest pain Do you want consulting provider notified?: Yes 09/22/20 11:21 Consult Physician Routine Consulting Provider: [facility] Consult Reason/Comments: Post Interventional patient Do you want consulting provider notified?: Already Contacted Primary care physician: [facility] Course: Chief Complaint: chest pain History of presenting complaint: This is a pleasant [address] Rodriguez. Patient long-standing smoker. Patient today developed a burning sensation in the upper chest and patient broke or numbness site. It went to his jaw. Positive for good 30 minutes. Patient is feeling tired and rundown. It finally settled after receiving and Nitropaste in the ER. Currently chest pain-free. IV heparin. Patient second troponin coming back positive. The pain did radiate to the neck.. Burning sensation like in nature. Admitted with acute non-ST elevation myocardial infarction. Started IV heparin.underwent cardiac catheterization. Had a stent to the LAD and RCA Today-. Doing well. Ambulating. No chest pain or shortness of breath. Cleared by cardiology Care was discussed with the patient. Consultation: Dr. Jefferson from cardiology Physical examination: VITAL SIGNS: 98.3, 75, 14, 112/69, 98% room air GENERAL: Laying in bed, comfortable awake EYES: Pupils equal. Conjunctiva normal. NECK: JVD not raised; masses not palpable. HEART: First and second heart sounds are normal; no edema. LUNGS: Respiratory rate normal; decreased breath sounds. ABDOMEN: Soft, nontender, liver spleen not palpable, no masses palpable. PSYCH: Alert and oriented x3; mood and affect normal. INVESTIGATIONS, reviewed in the clinical context: White count 8.4 hemoglobin 14.6 platelets 268 potassium 4.1 creatinine 0.95 2-D echocardiogram-moderate concentric LVH, EF 45-50% basal inferolateral hypokinesis Troponin I 0.012, 0.072, 0.248 LDL 104 EKG tracing personally reviewed by me-normal sinus rhythm, PVC Chest x-ray film personally reviewed by me-no infiltrates. Borderline cardiomegaly Assessment: -Acute non-ST elevation myocardial infarction POA -Coronary artery disease-with stent to the LAD, RCA -Hyperlipidemia -Obesity BMI 33.5 -IV heparin monitoring -Chronic nicotine dependence patient cigarette smoker -DJD of the cervical spine, but chronic pain Disposition: Home Patient Condition at Discharge: Stable Plan - Discharge Summary Discharge Rx Participant: No New Discharge Prescriptions: New Prasugrel [Effient] 10 mg PO DAILY #30 tab Atorvastatin [Lipitor] 80 mg PO HS #30 tab Metoprolol Tartrate [Lopressor] 25 mg PO BID #60 tab Nitroglycerin Sl Tabs [Nitrostat] 0.4 mg SUBLINGUAL Q5M PRN #25 tab PRN Reason: Chest Pain lisinopriL [Zestril] 2.5 mg PO HS #30 tab Aspirin 81 mg PO DAILY #30 chew Continue fentaNYL 12MCG/HR PATCH [Duragesic 12MCG/HR] 1 patch TRANSDERM Q72H HYDROcodone/APAP 10-325MG [[place] 10-325] 2 tab PO BID@0800,1300 HYDROcodone/APAP 10-325MG [[place] 10-325] 1 tab PO HS Discharge Medication List HYDROcodone/APAP 10-325MG [[place] 10-325] 1 tab PO HS 09/21/20 [History] HYDROcodone/APAP 10-325MG [[place] 10-325] 2 tab PO BID@0800,1300 09/21/20 [History] fentaNYL 12MCG/HR PATCH [Duragesic 12MCG/HR] 1 patch TRANSDERM Q72H 09/21/20 [History] Aspirin 81 mg PO DAILY #30 chew 09/23/20 [Rx] Atorvastatin [Lipitor] 80 mg PO HS #30 tab 09/23/20 [Rx] Metoprolol Tartrate [Lopressor] 25 mg PO BID #60 tab 09/23/20 [Rx] Nitroglycerin Sl Tabs [Nitrostat] 0.4 mg SUBLINGUAL Q5M PRN #25 tab 09/23/20 [Rx] Prasugrel [Effient] 10 mg PO DAILY #30 tab 09/23/20 [Rx] lisinopriL [Zestril] 2.5 mg PO HS #30 tab 09/23/20 [Rx] Follow up Appointment(s)/Referral(s): Benjamin Rodriguez DO [Primary Care Provider] - 1-2 days (OFFICES ARE CLOSED PLEASE CALL FRIDAY TO MAKE A FOLLOW UP APPOINTMENT) John Polanco MD [STAFF PHYSICIAN] - 10/10/20 4:15 pm (FRIDAY) Patient Instructions/Handouts: Safe Use of Antiplatelet Medication (DC), After Radial Heart Catheterization (GEN) Activity/Diet/Wound Care/Special Instructions: CARDIAC CATH Watch for any excessive bruising, active bleeding, a firm knot forming under yo ur skin, extreme tenderness and signs of infection (redness, swelling, fever). Shower daily, do not soak puncture in a tub bath, jacuzzi, pool, flores etc. for 1 week. This is to prevent risk of infection. Drink plenty of fluids the day of and day after your procedure to flush contrast dye out of your kidneys. Take all medications as directed. Never stop any new medication without your physicians OK. No driving for 2 days after procedure. 5- pound weight lifting restriction for 1 week. Low sodium/low fat diet. 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 In case of any problems, please call [facility] @ [phone]. Discharge Disposition: HOME SELF-CARE
[2020-09-23] MEDS ORDERED: ATORVASTATIN 80 MG TAB PO SCH (21:00)
== END 2020-09-23 12:54 | disposition home or self-care (01) | DRG 247 ==
LOC: EC 15:54 → 3NCARDOBS 17:21 → 3SCARD 09-22 03:30 → OBSVTOIN 09-23 11:08
PROVIDERS: ADMIT Hospitalist; ATTEND Hospitalist
PROC: B2111ZZ Fluoroscopy of Multiple Coronary Arteries using Low Osmolar Contrast (ICD-10-PCS; principal; 2020-09-22 10:45)
PROC: 027136Z Dilation of Coronary Artery, Two Arteries with Three Drug-eluting Intraluminal Devices, Percutaneous Approach (ICD-10-PCS; principal; 2020-09-22 10:45)
PROC: 4A023N7 Measurement of Cardiac Sampling and Pressure, Left Heart, Percutaneous Approach (ICD-10-PCS; principal; 2020-09-22 10:45)
DX: I21.4 Non-ST elevation (NSTEMI) myocardial infarction (principal); I25.10 Atherosclerotic heart disease of native coronary artery without angina pectoris; I49.3 Ventricular premature depolarization; M47.812 Spondylosis without myelopathy or radiculopathy, cervical region; M48.00 Spinal stenosis, site unspecified; G89.29 Other chronic pain; I10 Essential (primary) hypertension; F17.210 Nicotine dependence, cigarettes, uncomplicated; E66.9 Obesity, unspecified; Z68.33 Body mass index [BMI] 33.0-33.9, adult; E78.5 Hyperlipidemia, unspecified; Z79.82 Long term (current) use of aspirin; Z90.49 Acquired absence of other specified parts of digestive tract; Z90.89 Acquired absence of other organs
CPT/HCPCS: 36415; 71046; 80048; 80053; 80061; 83690; 83735; 83880; 84484; 85025; 85049; 85610; 85730; 93005; 93306; 93458; 96374; 99285

== ENCOUNTER 2021-05-14 | Observation (INO) | payer BC | END 2021-05-15 12:22 | disposition home or self-care (01) | PROVIDERS: ADMIT Hospitalist | CPT/HCPCS: 96376 ×2; 96365; 96366; 96375; 93005 ×2; 96361; 99291; 36415; 85379; 80061; 80053; 83735; 84484; 85025; 85610; 85730 ×2; 71046; G0378 ×2; J2405; J1644 ×3 ==